=== PATIENT | female | born 1970 | race Caucasian/White ===

== ENCOUNTER 2016-04-02 13:48 | Emergency (ER) | payer SELFPAY ==
[~2016-04-02] VITALS: Ht 157.5 cm; Wt 96.2 kg
[~2016-04-02 13:48] MED LIST: IBUP400T35
[2016-04-02 14:05] VITALS: BP 201/120
[2016-04-02] MEDS ORDERED: cloNIDine HCL 0.1 MG TAB PO ONE (14:15)
== END 2016-04-02 17:04 | disposition home or self-care (01) ==
LOC: ER 13:52
DX: J20.9 Acute bronchitis, unspecified (principal); I10 Essential (primary) hypertension
CPT/HCPCS: 71020

== ENCOUNTER 2017-06-07 11:39 | Emergency (ER) | payer SELFPAY ==
[~2017-06-07] VITALS: Ht 160 cm; Wt 89.8 kg
[2017-06-07 14:08] VITALS: BP 158/77
[2017-06-07 14:43] LABS: Basophils # (auto) 0.1 uL; Basophils % (auto) 0.5 % (0.0-2.0); Eosinophils # (auto) 0.1 uL; Eosinophils % (auto) 1.4 % (0.0-7.0); Hematocrit 41.1 % (36.0-46.0); Hemoglobin 14.2 g/dL (12.2-16.2); Lymphocytes # (auto) 3.4 uL; Lymphocytes % (auto) 34.4 % (10.0-50.0); Mean Corpuscular Hemoglobin 32.6 pg (28.0-32.0); Mean Corpuscular Hgb Conc. 34.6 g/dL (32.0-36.0); Monocytes # (auto) 0.6 uL; Monocytes % (auto) 5.9 % (0.0-12.0); Neutrophils # (auto) 5.7 uL; Neutrophils % (auto) 57.8 % (37.0-80.0); Nucleated Red Blood Cells % 0.2 %; Platelet Count (auto) 290 10^3/uL (140-450); Red Blood Cells 4.37 10^6/uL (4.0-5.20); White Blood Cell 9.9 10^3/uL (4.4-10.8)
[2017-06-07 15:03] LABS: Albumin 3.8 g/dL (3.4-5.0); BUN/Creatinine Ratio 24.5; Bilirubin, Total 0.4 mg/dL (0.2-1.0); Calcium 8.6 mg/dL (8.5-10.1); Magnesium 2.4 mg/dL (1.6-2.6); Potassium 3.6 mmol/L (3.5-5.1); Total Protein 8.5 g/dL (6.4-8.2)
[2017-06-07 15:10] LABS: Urine Bacteria NONE SEEN /hpf (None Seen); Urine Blood 2+ /uL (Negative); Urine Mucus FEW (None Seen); Urine Specific Gravity 1.024 (1.001-1.035); Urine WBC 1 /hpf (0 - 5)
== END 2017-06-07 14:50 | disposition home or self-care (01) ==
LOC: ER 11:39
DX: I10 Essential (primary) hypertension (principal); H66.93 Otitis media, unspecified, bilateral; R74.8 Abnormal levels of other serum enzymes; Z76.0 Encounter for issue of repeat prescription; Z83.3 Family history of diabetes mellitus
CPT/HCPCS: 36415; 80053; 81001; 82962; 83735; 84443; 85025; 93005

== ENCOUNTER 2017-07-01 01:16 | Emergency (ER) | payer SELFPAY ==
[~2017-07-01] VITALS: Ht 152.4 cm; Wt 88.9 kg
[2017-07-01 01:25] VITALS: BP 184/112
[2017-07-01 02:49] LABS: Basophils # (auto) 0.1 uL; Basophils % (auto) 0.7 % (0.0-2.0); Eosinophils # (auto) 0.1 uL; Eosinophils % (auto) 0.6 % (0.0-7.0); Hematocrit 41.3 % (36.0-46.0); Lymphocytes # (auto) 2.2 uL; Lymphocytes % (auto) 20.7 % (10.0-50.0); Mean Corpuscular Volume 94.1 fL (80.0-100.0); Monocytes # (auto) 0.4 uL; Monocytes % (auto) 3.5 % (0.0-12.0); Neutrophils # (auto) 7.9 uL; Neutrophils % (auto) 74.5 % (37.0-80.0); Platelet Count (auto) 221 10^3/uL (140-450); Red Blood Cells 4.39 10^6/uL (4.0-5.20); Red Cell Distribution Width 13.5 % (11.8-14.3); White Blood Cell 10.6 10^3/uL (4.4-10.8)
[2017-07-01 02:57] LABS: Urine Bacteria FEW /hpf (None Seen); Urine Blood Negative /uL (Negative); Urine Specific Gravity 1.007 (1.001-1.035); Urine WBC 1 /hpf (0 - 5)
[2017-07-01 03:07] LABS: Albumin 3.6 g/dL (3.4-5.0); BUN/Creatinine Ratio 27.6; Bilirubin, Total 0.2 mg/dL (0.2-1.0); Magnesium 1.9 mg/dL (1.6-2.6); Potassium 3.4 mmol/L (3.5-5.1); Total Protein 8.2 g/dL (6.4-8.2)
== END 2017-07-01 03:35 | disposition left against medical advice (07) ==
LOC: ER 01:17
DX: R10.9 Unspecified abdominal pain (principal); Z53.21 Procedure and treatment not carried out due to patient leaving prior to being seen by health care provider
CPT/HCPCS: 36415; 74176; 80053; 81001; 82150; 83690; 83735; 84702; 85025

== ENCOUNTER 2021-11-04 15:50 | Emergency (ER) | payer MEDICAID ==
[~2021-11-04] VITALS: Ht 160 cm; Wt 85.2 kg
[~2021-11-04 15:50] MED LIST changes: +CIPR-173 PO; -IBUP400T35; +LOSA-39 PO; +METR500T14 PO
[2021-11-04] MEDS ORDERED: KETOROLAC TROMETH 60MG/2ML VIAL IM ONE (17:00)
[2021-11-04] MEDS ORDERED: IBUP800T27 PO (17:34)
[2021-11-04] MEDS ORDERED: TRAM-297 PO (17:34)
[2021-11-04 18:03] VITALS: BP 146/103
== END 2021-11-04 18:05 | disposition home or self-care (01) ==
LOC: ER 15:50
DX: S22.41XA Multiple fractures of ribs, right side, initial encounter for closed fracture (principal); I10 Essential (primary) hypertension; E11.9 Type 2 diabetes mellitus without complications; F17.210 Nicotine dependence, cigarettes, uncomplicated; Z79.1 Long term (current) use of non-steroidal anti-inflammatories (NSAID); Z79.899 Other long term (current) drug therapy; W01.0XXA Fall on same level from slipping, tripping and stumbling without subsequent striking against object, initial encounter; Y93.89 Activity, other specified; Y92.89 Other specified places as the place of occurrence of the external cause; Y99.8 Other external cause status
CPT/HCPCS: 71101; 96372; 99283; J1885

== ENCOUNTER 2022-09-09 16:01 | Emergency (ER) | payer MEDICAID ==
[~2022-09-09] VITALS: Ht 160 cm; Wt 86.5 kg
[~2022-09-09 16:01] MED LIST changes: +IBUP-1456 PO; -LOSA-39 PO; +LOSA100T58 PO; +METR-344 PO; -METR500T14 PO; +TRAM-297 PO
[2022-09-09] MEDS ORDERED: cloNIDine HCL 0.1 MG TAB PO ONE (16:30)
[2022-09-09 17:42] VITALS: BP 127/68
[2022-09-09] MEDS ORDERED: NAPR-746 PO (17:47)
== END 2022-09-09 18:03 | disposition home or self-care (01) ==
LOC: ER 16:01
DX: S86.912A Strain of unspecified muscle(s) and tendon(s) at lower leg level, left leg, initial encounter (principal); I83.812 Varicose veins of left lower extremity with pain; E11.9 Type 2 diabetes mellitus without complications; I10 Essential (primary) hypertension; X58.XXXA Exposure to other specified factors, initial encounter; Y93.01 Activity, walking, marching and hiking; Y92.89 Other specified places as the place of occurrence of the external cause; Y99.8 Other external cause status
CPT/HCPCS: 93971

== ENCOUNTER 2023-08-23 10:22 | Inpatient (IN) | payer MEDICAID ==
[~2023-08-23] VITALS: Ht 160 cm; Wt 90.7 kg
[~2023-08-23 10:22] MED LIST changes: +LOSA-535 PO; -LOSA100T58 PO; +NAPR-746 PO
[2023-08-23 12:12] LABS: Urine Bacteria None Seen /hpf (None Seen)
[2023-08-23 12:37] LABS: Basophils # (auto) 0.1 10 ^3/uL (0-0.2); Basophils % (auto) 0.7 % (0.0-2.0); Eosinophils # (auto) 0.1 10 ^3/uL (0-0.8); Eosinophils % (auto) 0.7 % (0.0-7.0); Hematocrit 44.2 % (36.0-46.0); Hemoglobin 15.3 g/dL (12.2-16.2); Lymphocytes # (auto) 3.5 10 ^3/uL (0.4-5.4); Mean Corpuscular Hemoglobin 32.2 pg (28.0-32.0); Mean Corpuscular Hgb Conc. 34.6 g/dL (32.0-36.0); Mean Corpuscular Volume 92.8 fL (80.0-100.0); Monocytes # (auto) 0.7 10 ^3/uL (0-1.3); Monocytes % (auto) 5.9 % (0.0-12.0); Neutrophils # (auto) 7.6 10 ^3/uL (1.6-8.6); Neutrophils % (auto) 63.7 % (37.0-80.0); Nucleated Red Blood Cells % 0.1 %; Red Blood Cells 4.76 10^6/uL (4.0-5.20); Red Cell Distribution Width 12.9 % (11.8-14.3)
[2023-08-23 12:48] LABS: Urine Blood Negative /uL (Negative); Urine Clarity Turbid (Clear); Urine Color Yellow (Yellow); Urine Mucus FEW (None Seen); Urine Protein, UAD TRACE (Negative); Urine Specific Gravity 1.027 (1.001-1.035); Urine Urobilinogen Normal (Negative); Urine WBC 2 /hpf (0 - 5)
[2023-08-23 12:49] LABS: Alanine Aminotransferase 68 U/L (7-40); Albumin 4.5 g/dL (3.2-4.8); Alkaline Phosphatase 59 U/L (46-116); Anion Gap 10 (5-15); Aspartate Aminotransferase 69 U/L (13-40); BUN/Creatinine Ratio 18.2 (10.0-20.0); Bilirubin, Total 0.3 mg/dL (0.2-1.0); Blood Urea Nitrogen 12 mg/dL (9-23); Calcium 10.4 mg/dL (8.7-10.4); Carbon Dioxide 25 mmol/L (20-30); Chloride 99 mmol/L (98-107); Glucose 212 mg/dL (74-106); Lipase 34 U/L (12-53); Magnesium 1.6 mg/dL (1.6-2.6); Potassium 3.5 mmol/L (3.5-5.1); Sodium 134 mmol/L (136-145)
[2023-08-23 12:50] LABS: Total Protein 7.7 g/dL (5.7-8.2)
[2023-08-23 12:55] LABS: Lactic Acid w/Reflex 3.6 mmol/L (0.4-2.0)
[2023-08-23] MEDS: SODIUM CHLORIDE 0.9% 1,000 ML IV ONE ×2 (13:46→15:20)
[2023-08-23] MEDS ORDERED: CIPR-173 PO (19:22)
[2023-08-23 20:52] LABS: Lactic Acid w/Reflex 2.3 mmol/L (0.4-2.0)
[2023-08-23] MEDS: CIPROFLOXACIN 400MG/200ML 200 ML IV ONE (21:15)
[2023-08-23] MEDS ORDERED: ONDANSETRON HCL 4 MG/2 ML VIAL IV PRN (21:30)
[2023-08-23 23:06] VITALS: PULSE 70; RESP 18; O2SAT 96
[2023-08-23] MEDS: HYDROcodone-ACET 5/325MG TAB PO PRN (23:19)
[2023-08-24 00:30] VITALS: PULSE 75; RESP 15; O2SAT 97
[2023-08-24 04:53] LABS: Basophils # (auto) 0 10 ^3/uL (0-0.2); Basophils % (auto) 0.5 % (0.0-2.0); Eosinophils # (auto) 0.1 10 ^3/uL (0-0.8); Eosinophils % (auto) 1.4 % (0.0-7.0); Hematocrit 38.2 % (36.0-46.0); Hemoglobin 13.2 g/dL (12.2-16.2); Lymphocytes # (auto) 2.8 10 ^3/uL (0.4-5.4); Lymphocytes % (auto) 32.5 % (10.0-50.0); Mean Corpuscular Hemoglobin 32.5 pg (28.0-32.0); Mean Corpuscular Hgb Conc. 34.5 g/dL (32.0-36.0); Mean Corpuscular Volume 94.3 fL (80.0-100.0); Monocytes # (auto) 0.7 10 ^3/uL (0-1.3); Monocytes % (auto) 7.7 % (0.0-12.0); Neutrophils % (auto) 57.9 % (37.0-80.0); Red Blood Cells 4.06 10^6/uL (4.0-5.20); Red Cell Distribution Width 12.7 % (11.8-14.3); White Blood Cell 8.7 10^3/uL (4.4-10.8)
[2023-08-24 05:08] LABS: Alanine Aminotransferase 51 U/L (7-40); Albumin 3.7 g/dL (3.2-4.8); Alkaline Phosphatase 48 U/L (46-116); Anion Gap 10 (5-15); Aspartate Aminotransferase 55 U/L (13-40); Bilirubin, Total 0.3 mg/dL (0.2-1.0); Blood Urea Nitrogen 7 mg/dL (9-23); Calcium 9.1 mg/dL (8.7-10.4); Carbon Dioxide 23 mmol/L (20-30); Chloride 102 mmol/L (98-107); Glucose 379 mg/dL (74-106); Sodium 135 mmol/L (136-145); Total Protein 6.5 g/dL (5.7-8.2)
[2023-08-24 07:20] VITALS: PULSE 75; RESP 16; O2SAT 96
[2023-08-24] MEDS: cefTRIAXone 1GM/50ML D5W 50 ML IV SCH (09:32)
[2023-08-24] MEDS: LISINOPRIL 20 MG TAB PO SCH (09:56)
[2023-08-24] MEDS ORDERED: DEXTROSE (50%) 50ML SYRG IV PRN (12:15)
[2023-08-24] MEDS: POTASSIUM EFFERVESENT TAB 25 MEQ PO ONE (13:41)
[2023-08-24] MEDS: PANTOPRAZOLE 40 MG/10 ML VIAL INJ IV ONE (13:42)
[2023-08-24] MEDS: AZITHROMYCIN 250 MG TAB PO ONE (13:42)
[2023-08-24] MEDS ORDERED: LISI-707 PO (16:13)
[2023-08-24] MEDS ORDERED: METF-370 PO (16:13)
[2023-08-24] MEDS: ACCU-CHEK COMFORT CURVE STRIP VI SCH (17:11)
[2023-08-24] MEDS: InsuLIN REG 1unit/0.01ml Soln (100units/ml) SC SCH (17:12)
[2023-08-24 18:15] VITALS: BP 135/75; PULSE 75; RESP 18; TEMP 98.2; O2SAT 96
[2023-08-24 20:00] VITALS: RESP 18
[2023-08-24 21:00] VITALS: BP 164/98; PULSE 73; RESP 18; TEMP 97.6; O2SAT 98
[2023-08-25] VITALS (8 sets, daily range): BP systolic 115–174; BP diastolic 63–102; PULSE 67–82; RESP 14–20; TEMP 97.8–98.8; O2SAT 95–99
[2023-08-25 06:45] LABS: Basophils # (auto) 0.1 10 ^3/uL (0-0.2); Basophils % (auto) 0.8 % (0.0-2.0); Eosinophils # (auto) 0.1 10 ^3/uL (0-0.8); Eosinophils % (auto) 1.6 % (0.0-7.0); Hematocrit 38.6 % (36.0-46.0); Hemoglobin 13.5 g/dL (12.2-16.2); Lymphocytes # (auto) 2.3 10 ^3/uL (0.4-5.4); Lymphocytes % (auto) 29.1 % (10.0-50.0); Mean Corpuscular Hemoglobin 32.4 pg (28.0-32.0); Mean Corpuscular Hgb Conc. 34.9 g/dL (32.0-36.0); Mean Corpuscular Volume 92.9 fL (80.0-100.0); Monocytes # (auto) 0.5 10 ^3/uL (0-1.3); Monocytes % (auto) 6.1 % (0.0-12.0); Neutrophils # (auto) 4.9 10 ^3/uL (1.6-8.6); Neutrophils % (auto) 62.4 % (37.0-80.0); Nucleated Red Blood Cells % 0.1 %; Red Blood Cells 4.16 10^6/uL (4.0-5.20); Red Cell Distribution Width 13.1 % (11.8-14.3); White Blood Cell 7.8 10^3/uL (4.4-10.8)
[2023-08-25 07:14] LABS: Alanine Aminotransferase 75 U/L (7-40); Albumin 3.7 g/dL (3.2-4.8); Alkaline Phosphatase 41 U/L (46-116); Anion Gap 4 (5-15); Aspartate Aminotransferase 113 U/L (13-40); Calcium 9.3 mg/dL (8.7-10.4); Carbon Dioxide 27 mmol/L (20-30); Chloride 109 mmol/L (98-107); Glucose 175 mg/dL (74-106); Magnesium 1.7 mg/dL (1.6-2.6); Potassium 3.6 mmol/L (3.5-5.1); Sodium 140 mmol/L (136-145)
[2023-08-25 07:15] LABS: Bilirubin, Total 0.3 mg/dL (0.2-1.0); Total Protein 6.4 g/dL (5.7-8.2)
[2023-08-25 07:21] LABS: Blood Urea Nitrogen < 5 mg/dL (9-23)
[2023-08-25] MEDS ORDERED: SODIUM CHLORIDE LOCK 0 ML ONE (08:58)
[2023-08-25] MEDS ORDERED: LIDOCAINE VISCOUS 2% 15ML UD ONE (08:58)
[2023-08-25] MEDS ORDERED: fentaNYL CITRATE 100 MCG/2 ML VL ONE (08:59)
[2023-08-25] MEDS ORDERED: MIDAZOLAM HCL 5 MG/ML-1ML VIAL ONE (08:59)
[2023-08-25] MEDS ORDERED: diphenhdrAMINE HCL 50 MG/1 ML VL ONE (08:59)
[2023-08-25] MEDS: PANTOPRAZOLE 40 MG/10 ML VIAL INJ IV SCH (09:39)
[2023-08-25] MEDS: AZITHROMYCIN 250 MG TAB PO SCH (10:00)
[2023-08-25] MEDS: levoFLOXacin 500MG 100 ML IV SCH (13:34)
[2023-08-25] MEDS ORDERED: metroNIDAZOLE 500MG/100ML 100 ML IV SCH (14:00)
[2023-08-26] VITALS (7 sets, daily range): BP systolic 122–166; BP diastolic 68–99; PULSE 61–76; RESP 14–20; TEMP 97.6–99; O2SAT 96–98
[2023-08-27 01:00] VITALS: BP 108/57; PULSE 62; RESP 16; TEMP 97.9; O2SAT 93
[2023-08-27 05:00] VITALS: BP 104/58; PULSE 61; RESP 16; TEMP 97.9; O2SAT 95
[2023-08-27 06:34] LABS: Anion Gap 5 (5-15); Carbon Dioxide 27 mmol/L (20-30); Chloride 107 mmol/L (98-107); Potassium 3.9 mmol/L (3.5-5.1); Sodium 139 mmol/L (136-145)
[2023-08-27 06:35] LABS: Calcium 9.2 mg/dL (8.5-10.1)
[2023-08-27 06:40] LABS: Glucose 126 mg/dL (74-106)
[2023-08-27 06:41] LABS: Magnesium 1.8 mg/dL (1.6-2.6)
[2023-08-27 06:44] LABS: BUN/Creatinine Ratio 8.6 (10.0-20.0); Blood Urea Nitrogen < 5 mg/dL (9-23)
[2023-08-27 09:00] VITALS: BP 164/89; PULSE 80; RESP 16; TEMP 98.5; O2SAT 94
[2023-08-27 13:00] VITALS: BP 162/92; PULSE 81; RESP 14; TEMP 97.8; O2SAT 95
[2023-08-27 17:00] VITALS: BP 158/86; PULSE 69; RESP 14; TEMP 98.6; O2SAT 96
[2023-08-27 21:00] VITALS: BP 170/108; PULSE 72; RESP 20; TEMP 99.5; O2SAT 98
[2023-08-27] MEDS: hydrALAZINE HCL 20 MG/ML VL IV PRN (22:17)
[2023-08-28] VITALS (7 sets, daily range): BP systolic 118–179; BP diastolic 68–96; PULSE 60–75; RESP 16–20; TEMP 97.7–98.6; O2SAT 95–99
[2023-08-28 10:01] LABS: Hepatitis B Core Total AB Negative (Negative)
[2023-08-28 11:49] LABS: Hepatitis A Total Antibody Negative (Negative); Hepatitis B Surface Antibody Negative (Negative); Hepatitis B Surface Antigen Negative (Negative); Hepatitis C Antibody Negative (Negative)
[2023-08-29] VITALS (9 sets, daily range): BP systolic 120–152; BP diastolic 73–87; PULSE 66–73; RESP 16–20; TEMP 97.9–98.2; O2SAT 95–98
[2023-08-29] MEDS: TEMAZEPAM 15 MG CAP PO ONE (00:50)
[2023-08-30] VITALS (8 sets, daily range): BP systolic 97–150; BP diastolic 57–87; PULSE 60–75; RESP 16–20; TEMP 97.5–98.4; O2SAT 95–98
[2023-08-30 07:05] LABS: Anion Gap 6 (5-15); Carbon Dioxide 26 mmol/L (20-30); Chloride 107 mmol/L (98-107); Sodium 139 mmol/L (136-145)
[2023-08-30 07:06] LABS: Calcium 9.6 mg/dL (8.5-10.1)
[2023-08-30 07:11] LABS: Glucose 140 mg/dL (74-106)
[2023-08-30 07:12] LABS: BUN/Creatinine Ratio 8.3 (10.0-20.0); Blood Urea Nitrogen < 5 mg/dL (9-23); Magnesium 1.8 mg/dL (1.6-2.6)
[2023-08-30 07:16] LABS: Basophils # (auto) 0.1 10 ^3/uL (0-0.2); Basophils % (auto) 0.9 % (0.0-2.0); Eosinophils # (auto) 0.2 10 ^3/uL (0-0.8); Eosinophils % (auto) 1.9 % (0.0-7.0); Hemoglobin 13.9 g/dL (12.2-16.2); Lymphocytes % (auto) 33.6 % (10.0-50.0); Mean Corpuscular Hgb Conc. 33.8 g/dL (32.0-36.0); Mean Corpuscular Volume 94.5 fL (80.0-100.0); Monocytes # (auto) 0.7 10 ^3/uL (0-1.3); Monocytes % (auto) 8.3 % (0.0-12.0); Neutrophils % (auto) 55.3 % (37.0-80.0); Nucleated Red Blood Cells % 0.2 %; Red Blood Cells 4.34 10^6/uL (4.0-5.20); Red Cell Distribution Width 12.6 % (11.8-14.3)
[2023-08-31] VITALS (8 sets, daily range): BP systolic 100–158; BP diastolic 59–85; PULSE 58–67; RESP 16–18; TEMP 97.6–98.4; O2SAT 93–100
[2023-08-31] MEDS: GOLYTELY 4L KIT PO ONE (14:06)
[2023-08-31] MEDS: MELATONIN 5 MG TAB PO ONE (23:14)
[2023-09-01] VITALS (8 sets, daily range): BP systolic 100–136; BP diastolic 64–92; PULSE 60–99; RESP 12–18; TEMP 97.6–98.8; O2SAT 95–100
[2023-09-01 05:42] LABS: INR 1.09 (0.9-1.15); Prothrombin Time 11.5 sec (9.3-11.8)
[2023-09-01] MEDS: MAGNESIUM CITRATE SOLUTION 300 ML BTL PO ONE (07:28)
[2023-09-01] MEDS: GOLYTELY 4L KIT PO ONE (08:51)
[2023-09-01] MEDS ORDERED: MIDAZOLAM HCL 2MG/2ML 2ml VIAL (1mg/ml) ONE (12:34)
[2023-09-01] MEDS ORDERED: fentaNYL CITRATE 100 MCG/2 ML VL ONE (12:34)
[2023-09-01] MEDS ORDERED: PROPOFOL 10 MG/ML 20 ML IV ONE ×2 (12:50→13:00)
[2023-09-01] MEDS ORDERED: KETAMINE 50mg/ML 1ml syringe ONE (12:50)
[2023-09-01] MEDS: ONDANSETRON HCL 4 MG/2 ML VIAL IV ONE (13:30)
[2023-09-01] MEDS: PANTOPRAZOLE 40 MG TAB PO SCH (21:31)
[2023-09-01] MEDS: SUCRALFATE 1 GM/10 ML ORAL SUSP GT SCH (21:31)
[2023-09-01] MEDS: diphenhdrAMINE HCL 50 MG/1 ML VL IV PRN (21:40)
[2023-09-02 01:00] VITALS: BP 119/76; PULSE 78; RESP 16; TEMP 98; O2SAT 94
[2023-09-02 05:00] VITALS: BP 124/67; PULSE 69; RESP 17; TEMP 98; O2SAT 95
[2023-09-02 08:23] VITALS: RESP 16; O2SAT 98
[2023-09-02 09:00] VITALS: BP 139/83; PULSE 105; RESP 18; TEMP 98; O2SAT 96
[2023-09-02] MEDS: ACETAMINOPHEN 325 MG TAB PO PRN (09:23)
[2023-09-02 13:00] VITALS: BP 145/85; PULSE 64; RESP 16; TEMP 97.9; O2SAT 98
[2023-09-02] MEDS ORDERED: SUCR1SUS26 PO (13:18)
[2023-09-02] MEDS ORDERED: PANT40T PO (13:18)
[2023-09-02 21:00] VITALS: BP 153/86; PULSE 66; RESP 19; TEMP 98.7; O2SAT 98
[2023-09-02] MEDS: SUCRALFATE 1 GM/10 ML ORAL SUSP PO SCH (21:46)
[2023-09-03] VITALS (7 sets, daily range): BP systolic 118–148; BP diastolic 65–77; PULSE 57–69; RESP 16–20; TEMP 98–98.4; O2SAT 95–100
[2023-09-03 06:56] LABS: Alanine Aminotransferase 33 U/L (7-40); Alkaline Phosphatase 42 U/L (46-116); Calcium 9.7 mg/dL (8.7-10.4); Carbon Dioxide 23 mmol/L (20-30); Chloride 109 mmol/L (98-107)
[2023-09-03 06:57] LABS: Anion Gap 5 (5-15); Aspartate Aminotransferase 25 U/L (13-40); BUN/Creatinine Ratio 11.7 (10.0-20.0); Blood Urea Nitrogen 7 mg/dL (9-23); Glucose 176 mg/dL (74-106); Potassium 3.7 mmol/L (3.5-5.1); Sodium 137 mmol/L (136-145)
[2023-09-03 06:58] LABS: Bilirubin, Total 0.3 mg/dL (0.2-1.0)
[2023-09-04 01:00] VITALS: BP 143/69; PULSE 56; RESP 18; TEMP 97.7; O2SAT 95
[2023-09-04 05:00] VITALS: BP 117/68; PULSE 63; RESP 16; TEMP 97.8; O2SAT 98
[2023-09-04 08:00] VITALS: BP 139/90; PULSE 70; RESP 20; TEMP 98.4; O2SAT 97
[2023-09-04 08:30] VITALS: RESP 14
[2023-09-04] MEDS ORDERED: BLOO1KIT60 XX (10:09)
[2023-09-04] MEDS ORDERED: BLOOMIS91 XX (10:09)
[2023-09-04] MEDS ORDERED: DOCU-94 PO (10:09)
[2023-09-04] MEDS ORDERED: METF-929 PO (10:11)
[2023-09-04] MEDS ORDERED: PANT40TA2 PO (10:11)
[2023-09-04] MEDS ORDERED: LISI20TA60 PO (10:11)
[2023-09-04] MEDS ORDERED: SUCR1TAB31 OR (10:11)
[2023-09-04 13:03] LABS: Carcinoembryonic Antigen 2.07 ng/mL (<=5.0); Ferritin 50.8 ng/mL (10-291)
== END 2023-09-04 11:45 | disposition home or self-care (01) | DRG 248 ==
LOC: ER 10:22 → OVERFLOW 21:29 → WEST WING 08-24 18:24
PROVIDERS: ADMIT Nurse Practitioner; ATTEND Internal Medicine Geriatric Medicine
PROC: 0DB68ZX Excision of Stomach, Via Natural or Artificial Opening Endoscopic, Diagnostic (ICD-10-PCS; 2023-09-01)
PROC: 0DJD8ZZ Inspection of Lower Intestinal Tract, Via Natural or Artificial Opening Endoscopic (ICD-10-PCS; principal; 2023-09-01 12:33)
PROC: 0DB98ZX Excision of Duodenum, Via Natural or Artificial Opening Endoscopic, Diagnostic (ICD-10-PCS; 2023-09-01 12:33)
DX: A04.5 Campylobacter enteritis (principal); E87.20 Acidosis, unspecified; E11.40 Type 2 diabetes mellitus with diabetic neuropathy, unspecified; R16.0 Hepatomegaly, not elsewhere classified; K76.0 Fatty (change of) liver, not elsewhere classified; K29.70 Gastritis, unspecified, without bleeding; N39.0 Urinary tract infection, site not specified; K57.30 Diverticulosis of large intestine without perforation or abscess without bleeding; E66.01 Morbid (severe) obesity due to excess calories; E78.5 Hyperlipidemia, unspecified; F17.210 Nicotine dependence, cigarettes, uncomplicated; K64.8 Other hemorrhoids; K21.9 Gastro-esophageal reflux disease without esophagitis; I10 Essential (primary) hypertension; Z68.34 Body mass index [BMI] 34.0-34.9, adult; Z59.00 Homelessness unspecified; Z98.891 History of uterine scar from previous surgery; Z82.49 Family history of ischemic heart disease and other diseases of the circulatory system; Z83.3 Family history of diabetes mellitus
CPT/HCPCS: 36415; 74176; 76705; 80048; 80053; 81001; 82378; 82550; 82728; 82962; 83605; 83690; 83735; 84484; 84702; 85025; 85048; 85610; 86038; 86704; 86706; 86708; 86803; 87040; 87045; 87177; 87340; 87427; 87493; 96361; 96365; 96367; 96375; C9113; G0378; J1815; J1956; J2250; J2704